=== PATIENT | male | born 1945 | race Caucasian/White ===

== ENCOUNTER 2019-08-07 10:19 | Emergency (ER) | payer OTHER ==
[~2019-08-07] VITALS: Ht 182.9 cm; Wt 98.0 kg
== END 2019-08-07 11:30 | disposition home or self-care (01) ==
LOC: ER 10:19
DX: L27.0 Generalized skin eruption due to drugs and medicaments taken internally (principal); T50.8X5A Adverse effect of diagnostic agents, initial encounter; N20.0 Calculus of kidney
CPT/HCPCS: 96372; 99282-25; J3301

== ENCOUNTER 2021-03-16 05:55 | Emergency (ER) | payer OTHER ==
[~2021-03-16] VITALS: Ht 182.9 cm; Wt 93.0 kg
[~2021-03-16 05:55] MED LIST: AMLO10 PO; FLUTICASONE PROPIONATE INH; HYDCHL25 PO; Hytrin2 MG PO; LISI20 PO; Primidone50 MG PO; SALMETEROL INH; SILD50TA PO; ZOCOR20 MG PO
[2021-03-16] MEDS ORDERED: METPRE4DP PO (08:02)
== END 2021-03-16 08:22 | disposition home or self-care (01) ==
LOC: ER 05:55
DX: J98.01 Acute bronchospasm (principal); J98.8 Other specified respiratory disorders
CPT/HCPCS: 71045; 94640; 99283-25; A9270; J7512

== ENCOUNTER 2022-03-11 16:08 | Inpatient (IN) | payer OTHER ==
[~2022-03-11] VITALS: Ht 182.9 cm; Wt 96.0 kg
[~2022-03-11 16:08] MED LIST changes: +METPRE4DP PO
--- NOTE | 2022-03-11 22:30 | NUR ---
ADMIT NOTE; PT ARRIVED TO THE FLOOR VIA WHEELCHAIR FROM THE ED. PT APPEARS TO BE IN NO DISTRESS UPON ARRIVAL. PT DENIES ANY SOB. PT REPORTS 4/10 PAIN IN THE LLQ AND UPPER GASTRIC PAIN UPON ARRIVAL. PT IS ABLE TO AMBULATE TO THE BED FROM THE WHEELCHAIR WITH A STANDBY AASSIT UPON ARRIVAL. PT IS FEBRILE UPON ARRIVAL, NOTIFIED HOSPITALIST.
--- NOTE | 2022-03-11 23:00 | NUR ---
NOTIFIED DR. JACKSON OF PTS TEMPERATURE OF 101.3, 650MG OF TYLENOL ORDERED Q4HR PRN. ALSO NOTIFIED OF PTS BLOOD PRESSURE OF 104/66, SAID HOLD KENYA.
--- NOTE | 2022-03-12 04:23 | NUR ---
SHIFT SUMMARY; PT WAS FEBRILE UPON ARRIVAL, TYLENOL GIVEN AND TEMPERATURE HAS SINCE THEN BECAME AFEBRILE. PT WITH NO OTHER ACUTE CHANGES OVERNIGHT. DENIES ANY SOB, CHEST PAIN OR PRESSURE. PT DOES SAY THAT HE HAS 4/1O LLQ PAIN AND UPPER GASTRIC PAIN BUT THE LLQ PAIN IS ONLY WITH PALPATION AND THE UPPERGASTRIC PAIN IS ONLY WITH MOVEMENT. LR REMAINS RUNNING AT 125 MLS/HR. PT CURRENTLY RESTING IN BED WITH THE BED IN THE LOWEST POSITION AND THE CALL LIGHT AT BEDSIDE. PT HAS A RESIDUAL OCCASIONAL NONPRODUCTIVE COUGH FROM THE FLU WHICH HE WAS DIAGNOSED WITH 18 DAYS AGO PER PT REPORT.
[2022-03-12 05:06] LABS: BASOPHILS ABSOLUTE AUTO 0.01 K/mm3 (0.00-0.23); BASOPHILS PERCENT AUTO 0 % (0-2); EOSINOPHILS ABSOLUTE AUTO 0.08 K/mm3 (0.00-0.68); EOSINOPHILS PERCENT AUTO 1 % (0-6); Hematocrit 34.4 % (37.0-53.0); IMMATURE GRAN ABSOLUTE AUTO 0.04 K/mm3 (0.00-0.10); IMMATURE GRAN PERCENT AUTO 0 % (0-1); LYMPHOCYTES ABSOLUTE AUTO 0.55 K/mm3 (0.84-5.20); LYMPHOCYTES PERCENT AUTO 6 % (21-46); MONOCYTES ABSOLUTE AUTO 0.64 K/mm3 (0.16-1.47); MONOCYTES PERCENT AUTO 7 % (4-13); Mean Corpuscular HGB 32.3 pg (26.0-34.0); Mean Corpuscular HGB Conc 34.9 g/dL (31.5-36.5); Mean Corpuscular Volume 93 fL (80-100); Mean Platelet Volume 9.7 fL (9.1-12.4); NEUTROPHILS ABSOLUTE AUTO 7.72 K/mm3 (1.96-9.15); NEUTROPHILS PERCENT AUTO 85 % (41-73); Platelet Count 97 K/mm3 (150-400); RDW Coefficient Variation 12.7 % (11.7-14.2); RDW Standard Deviation 43.4 fL (35.1-46.3); Red Blood Cell Count 3.71 M/mm3 (4.30-5.90); White Blood Cell Count 9.04 K/mm3 (4.00-11.30)
[2022-03-12 05:47] LABS: Albumin, Blood 2.6 g/dL (3.4-5.0); Bilirubin, Total 1.7 mg/dL (0.1-1.0); Bun/Creatinine Ratio 12.3 (12.0-20.0); Calcium, Blood 8.7 mg/dL (8.5-10.1); Creatinine, Blood 1.38 mg/dL (0.60-1.20); Globulin, Blood 2.6 g/dL (2.2-4.0); Magnesium, Blood 1.6 mg/dL (1.6-2.4); Potassium, Blood 4.2 mmol/L (3.5-5.5); Total Protein, Blood 5.2 g/dL (6.4-8.2)
--- NOTE | 2022-03-12 06:30 | NUR ---
ESSENTIAL TREMOR NOTED, PRESENT AT BASELINE FOR PT.
--- NOTE | 2022-03-12 17:29 | NUR ---
SHIFT SUMMARY PT A&OX4 AND IN PLEASENT MOOD T/O SHIFT. DR. PULIDO IN TO SEE PT THIS SHIFT, NON-SURG NO GALL STONES PRESENT @ THIS TIME. PT CURRENTLY ON CL DIET. LR @ 125 RUNNING. CALL LIGHT W/IN REACH. @ BEDSIDE DURING VISITING HOURS. TREMOR NOTED. NO C/O PAIN/N/V.
--- NOTE | 2022-03-12 19:50 | NUR ---
THE PATIENT IS A 76 YEAR-OLD MALE WITH A DIAGNOSIS OF PANCREATITIS. A&OX4. PATIENT EFFECTIVELY COMMUNICATES NEEDS. VSS. O2 >90% ON RA. NO ACUTE SIGNS OR SYMPTOMS AT THIS TIME. CALL LIGHT WITHIN REACH. BED LOW AND LOCKED. THIS RN WILL CONTINUE TO CLOSELY MONITOR.
--- NOTE | 2022-03-13 03:30 | NUR ---
LOGGER SUMMARY THE PATIENT IS A 76 YEAR-OLD MALE WITH A DIAGNOSIS OF PANCREATITIS. A&OX4. PATIENT EFFECITVELY COMMUNICATES NEEDS. VSS. O2 >90% ON RA. PAIN ASSESSED AND MEDICATED PER EMAR. LR INFUSING @ 125ML/HR IN RIGHT HAND IV. ZOSYN ADMINISTERED PER EMAR. PATIENT REPORTS SEVERAL LOOSE STOOLS. NO ASE OTHERWISE. NO ACUTE SIGNS OR SYMPTOMS. CALL LIGHT WITHIN REACH. BED LOW AND LOCKED. THIS RN WILL CONTINUE TO CLOSELY MONITOR.
[2022-03-13 10:56] LABS: Albumin, Blood 2.6 g/dL (3.4-5.0); Bun/Creatinine Ratio 9.9 (12.0-20.0); Calcium, Blood 8.4 mg/dL (8.5-10.1); Creatinine, Blood 1.21 mg/dL (0.60-1.20); Globulin, Blood 2.7 g/dL (2.2-4.0); Magnesium, Blood 1.6 mg/dL (1.6-2.4); Potassium, Blood 3.1 mmol/L (3.5-5.5); Total Protein, Blood 5.3 g/dL (6.4-8.2)
--- NOTE | 2022-03-13 14:15 | NUR ---
PT ARRIVED TO UNIT @ THIS TIME, SBA
--- NOTE | 2022-03-13 18:24 | NUR ---
DISCHARGE PT A&OX4, SPOUSE @ BEDSIDE DURING DC DIRECTION. PLAN TO FOLLOW UP W/ PCP. TOLERATING PO INTAKE WELL @ THIS TIME. 2 IV MAG, 2 40 MEQ K+ ADMIN. PRIOR TO DC. WC ESCORT OUT TO [place], TO PROVIDE TRANSPORT.
== END 2022-03-13 18:16 | disposition home or self-care (01) | DRG 440 ==
LOC: ER 16:08 → MEDS 21:59
PROVIDERS: Student in an Organized Health Care Education/Training Program; ADMIT Internal Medicine
DX: K85.20 Alcohol induced acute pancreatitis without necrosis or infection (principal); K85.10 Biliary acute pancreatitis without necrosis or infection; R74.01 Elevation of levels of liver transaminase levels; R16.1 Splenomegaly, not elsewhere classified; R05.9 Cough, unspecified; F10.10 Alcohol abuse, uncomplicated; M10.9 Gout, unspecified; E80.6 Other disorders of bilirubin metabolism; D69.6 Thrombocytopenia, unspecified; E78.5 Hyperlipidemia, unspecified; J31.0 Chronic rhinitis; C61 Malignant neoplasm of prostate; N18.9 Chronic kidney disease, unspecified; I12.9 Hypertensive chronic kidney disease with stage 1 through stage 4 chronic kidney disease, or unspecified chronic kidney disease; G25.0 Essential tremor; Z91.041 Radiographic dye allergy status; Z79.899 Other long term (current) drug therapy; Z79.811 Long term (current) use of aromatase inhibitors; Z79.52 Long term (current) use of systemic steroids; Z85.72 Personal history of non-Hodgkin lymphomas; Z71.41 Alcohol abuse counseling and surveillance of alcoholic
CPT/HCPCS: 36415; 71045; 74181; 80053; 82947; 83690; 83735; 85025; 86850; 86900; 86901; 94640; 94664; 94760; 96374; 96375; 99285-25; A9270; J1170; J1650; J2405; J2543; J3475; J7050; J7120

== ENCOUNTER 2023-11-27 14:57 | Emergency (ER) | payer OTHER ==
[~2023-11-27] VITALS: Ht 182.9 cm; Wt 83.9 kg
[2023-11-27] MEDS ORDERED: DiphenhydrAMINE HCl 50 MG/ML 1ML Vial IV ONE (19:05)
[2023-11-27 21:41] VITALS: BP 133/70
== END 2023-11-27 21:41 | disposition home or self-care (01) ==
LOC: ER 14:57
DX: R07.9 Chest pain, unspecified (principal); Z79.899 Other long term (current) drug therapy; Z91.041 Radiographic dye allergy status; I10 Essential (primary) hypertension; E78.5 Hyperlipidemia, unspecified
CPT/HCPCS: 71260; 74177; 96374-59; 99284-25; J1200; Q9967

== ENCOUNTER 2023-12-29 10:59 | Emergency (ER) | payer OTHER ==
[~2023-12-29] VITALS: Ht 182.9 cm; Wt 98.9 kg
[2023-12-29 12:35] LABS: Albumin, Blood 3.4 g/dL (3.4-5.0); Albumin/Globulin Ratio 1.1 (0.8-1.8); Bilirubin, Total 0.6 mg/dL (0.1-1.0); Bun/Creatinine Ratio 19.7 (12.0-20.0); Calcium, Blood 8.7 mg/dL (8.5-10.1); Creatinine, Blood 0.91 mg/dL (0.60-1.20); Globulin, Blood 3.1 g/dL (2.2-4.0); Potassium, Blood 3.6 mmol/L (3.5-5.5); Total Protein, Blood 6.5 g/dL (6.4-8.2)
[2023-12-29 12:54] LABS: BASOPHILS ABSOLUTE AUTO 0.04 K/mm3 (0.00-0.23); BASOPHILS PERCENT AUTO 1 % (0-2); EOSINOPHILS ABSOLUTE AUTO 0.17 K/mm3 (0.00-0.68); EOSINOPHILS PERCENT AUTO 4 % (0-6); Hematocrit 40.6 % (37.0-53.0); Hemoglobin 14.2 g/dL (13.5-17.5); IMMATURE GRAN ABSOLUTE AUTO 0.03 K/mm3 (0.00-0.10); IMMATURE GRAN PERCENT AUTO 1 % (0-1); LYMPHOCYTES ABSOLUTE AUTO 0.69 K/mm3 (0.84-5.20); LYMPHOCYTES PERCENT AUTO 18 % (21-46); MONOCYTES ABSOLUTE AUTO 0.42 K/mm3 (0.16-1.47); MONOCYTES PERCENT AUTO 11 % (4-13); Mean Corpuscular HGB 32.6 pg (26.0-34.0); Mean Corpuscular Volume 93 fL (80-100); NEUTROPHILS ABSOLUTE AUTO 2.56 K/mm3 (1.96-9.15); NEUTROPHILS PERCENT AUTO 66 % (41-73); RDW Standard Deviation 47.8 fL (35.1-46.3); Red Blood Cell Count 4.35 M/mm3 (4.30-5.90); White Blood Cell Count 3.91 K/mm3 (4.00-11.30)
[2023-12-29 15:45] VITALS: BP 141/80
[2023-12-29] MEDS ORDERED: DiphenhydrAMINE HCl 50 MG/ML 1ML Vial IV ONE (16:15)
[2023-12-29] MEDS ORDERED: MethylPREDNISolone Sod Succ 125 MG Vial IV ONE (16:15)
[2023-12-29 19:38] LABS: Mean Platelet Volume 9.8 fL (9.1-12.4); Platelet Count 123 K/mm3 (150-400)
== END 2023-12-29 18:00 | disposition home or self-care (01) ==
LOC: ER 10:59
PROVIDERS: Physician Assistant
DX: Z03.89 Encounter for observation for other suspected diseases and conditions ruled out (principal); I10 Essential (primary) hypertension; E78.5 Hyperlipidemia, unspecified; Z79.899 Other long term (current) drug therapy; Z91.041 Radiographic dye allergy status
CPT/HCPCS: 71260; 80053; 85025; 93005; 93010; 96374-59; 96375-59; 99285-25; J1200; J2919; Q9967